=== PATIENT | female | born 1960 | race Caucasian/White ===

== ENCOUNTER → 2018-08-03 11:30 | Outpatient (CLI) | payer OTHER, SELFPAY ==
[2018-08-05 14:43] LABS: HPV Reflexed? NOT INDICATED
--- OUTSIDE RECORDS SUMMARY | 2018-09-26 17:53 | XMS RPT_ITS ---
:1960 Author Organization [facility] Care Team Providers Name Role Phone Manisha Gresham Attending Unavailable PROBLEMS PROBLEMS DATE TYPE CONDITION / CODE ATTENDING STATUS SOURCE 08/05/2018 Unknown Z12.4 - Manisha Gresham Active Daysi Encounter for [facility] screening for Hospital malignant Repository neoplasm of cervix / Z12.4(ICD-10) PROCEDURES PROCEDURES No Procedure Records FoundRESULTS RESULTS PAP I-G W/RFX HRHPV Collected: 2018 Status: F Source: DAYSI 11:00 AM [facility] REPOSITORY Order Comment: CYTOLOGY INFORMATION: - CLINICAL INFORMATION: POSTMENOPAUSAL - DATE LMP/MENOPAUSE: - COLLECTION VIAL: Thin Prep Vial - 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 of containers..01 ThinPrep Vial TYPE CODE TESTS RESULT OUT OF RANGE REFERENCE UNITS LAB L7400.0800 . Normal DIAGN Comment Result Comment: NEGATIVE FOR INTRAEPITHELIAL LESION AND MALIGNANCY. LAB L7400.0900 . Normal ADEQ Comment Result Comment: Satisfactory for evaluation. No endocervical component is identified. LAB L7400.1400 . Normal PERFORM Comment Result Comment: Alka Ross, Wood Box Maker (ASCP) LAB L7400.2575 . Normal TEST METHOD Comment Result Comment: This liquid based ThinPrep(R) pap test was screened with the use of an image guided system. LAB L7400.2600 . Normal . COMM LAB L7400.2700 . Normal PAPSMR Comment Result Comment: The Pap smear is a screening test designed to aid in the detection of premalignant and malignant conditions of the uterine cervix. It is not a diagnostic procedure and should not be used as the sole means of detecting cervical cancer. Both false-positive and false-negative reports do occur. LAB L7400.2800 . Normal HPV RFLX Comment Result Comment: The HPV DNA reflex criteria were not met with this specimen result therefore, no HPV testing was performed. Performed at: - [facility] [id number] [employer] Clerk: Kamilah Chaves MD, Phone: [phone] Performed By: #### L7400.0350 #### [facility] (refer to report for specific site) refer to report for address and phone number ALLERGIES ALLERGIES No Allergies Records FoundENCOUNTERS ENCOUNTERS ADMIT/DISCHARGE ACCOUNT ADMITTING ENCOUNTER LOCATION SOURCE NUMBER CLASS 2018 [id number] Amb[facility] [address] ing:[facility] Repository PAYERS PAYERS ENCOUNTER GUARANTOR PAYER SUBSCRIBER SOURCE 2018 [id number] Insurance:MEDICAL WENGERDDOB[id number] Number: Repository [place] [id number]: [id number] Date:0187-[address]) [address], [place] [address]QA: 2018 Secondary NOT [facility]IV[facility]UNM [facility] Insurance:SELF PAY [facility] ([place], [place]) Number: Effective Repository Date:2018
== END ==
PROVIDERS: Visit Provider Obstetrics & Gynecology
DX: Z12.4 Encounter for screening for malignant neoplasm of cervix (principal)
CPT/HCPCS: 88175; G0145

== ENCOUNTER → 2018-11-05 08:33 | Outpatient (CLI) | payer OTHER, SELFPAY ==
--- NOTE | 2018-11-05 08:38 | BI_ITS ---
MAMMOGRAPHY - BILATERAL SCREENING REASON FOR EXAM: Female, 58 years old. Routine annual screening examination. PERTINENT HISTORY: Aunt with breast cancer. TECHNIQUE: Digital bilateral breast evan (3D mammographic acquisition) in the CC and MLO projections. 2-D mediolateral oblique (MLO) and craniocaudad (CC) views of both breasts were obtained. CAD: Full Field Digital Mammography with Computer Added Detection was performed. COMPARISON: Comparison is made with prior study dated December 26, 2011. FINDINGS: Breast Composition: The breasts are extremely dense, which lowers the sensitivity of mammography. There are no dominant masses or suspicious calcifications. Stable appearance of the small bilateral axillary lymph nodes. No other significant abnormalities are identified. There has been no significant change since the prior study. BI/SCREENING MAMM (CAD), BILAT IMPRESSION: Stable bilateral screening mammogram. Yearly follow-up mammogram recommended. (A) ASSESSMENT CATEGORY: BIRADS Category 1: Negative. A letter regarding these results will be sent to the patient by the facility within 30 days. Approximately 10% of breast cancers are not detected by mammography. A normal mammogram should not delay biopsy of a clinically suspicious abnormality. [id number] Electronically Signed: Avi Crisostomo, at 9:42 EST , Service support ,
== END ==
PROVIDERS: PCP Family Medicine; Referring Provider Obstetrics & Gynecology; Visit Provider Obstetrics & Gynecology
DX: Z12.31 Encounter for screening mammogram for malignant neoplasm of breast (principal)
CPT/HCPCS: 77063; 77067

== ENCOUNTER → 2021-05-03 | Outpatient (CLI) | payer OTHER, SELFPAY | END | disposition home or self-care (01) | LOC: LABSPEC 05-04 07:41 | PROVIDERS: PCP Family Medicine; Referring Provider Physician Assistant; Visit Provider Physician Assistant | DX: R09.81 Nasal congestion (principal) | CPT/HCPCS: 87635; U0005; U0003 ==

== ENCOUNTER 2022-07-22 12:47 | Outpatient (CLI) | payer OTHER, SELFPAY ==
[2022-07-22 15:01] LABS: Absolute Lymphocyte Count 1.65 X10^3/uL (0.83-4.51); Absolute Neutrophil Count 7.4 X10^3/uL (2.0-7.7); Basophil# 0.04 X10^3/uL; Basophil% 0.4 % (0-1); Eosinophil# 0.13 X10^3/uL; Eosinophils% 1.3 % (0-5); Hematocrit 38.5 % (37-47); Hemoglobin 13.1 g/dL (12.0-15.0); Lymphocyte # 1.65 X10^3/ul (0.83-4.51); Lymphocyte % 16.9 % (19-41); Mean Corpuscular Hgb 30.3 pg (27.0-32.0); Mean Corpuscular Volume 88.9 fL (81-99); Mean Platelet Vol. 9.5 fl (6.2-12.0); Monocyte# 0.53 X10^3/uL; Monocyte% 5.4 % (0-10); NRBC Flagged by Analyzer 0 % (0-5); Neutrophil % 75.8 % (47-70); Platelet Count 220 K/mm3 (150-450); RBC Distribution Width CV 13.2 % (11.6-14.6); RBC Distribution Width SD 42.8 fl (35.1-43.9); Red Blood Count 4.33 M/mm3 (4.2-5.4); White Blood Count 9.8 K/mm3 (4.4-11.0)
[2022-07-22 15:36] LABS: ALB/GLOB Ratio 1.1 RATIO (0.9-2.4); AST(SGOT) 17 U/L (15-37); Alanine Aminotransfer ALT/SGPT 40 U/L (13-56); Alkaline Phosphatase 98 U/L (45-117); Anion Gap 6 (5-15); BUN 14 mg/dL (7-18); BUN/Creat Ratio 16.1 RATIO (10-20); Calcium,Total 9.1 mg/dL (8.5-10.1); Chloride 103 mmol/L (98-107); Creatinine, Serum 0.87 mg/dL (0.55-1.02); EST Glomerular Filtration Rate 70 mL/min (>60); Est Glom Filt Rate - Afr Amer 85 mL/min (>60); Globulin 3.8 g/dL (2.2-4.2); Glucose 103 mg/dL (74-106); Potassium 3.8 mmol/L (3.5-5.1); Protein, Total 7.8 g/dL (6.4-8.2); Sodium Level 137 mmol/L (136-145)
== END 2022-07-22 23:59 | disposition home or self-care (01) ==
PROVIDERS: PCP Family Medicine; Referring Provider Family Medicine; Visit Provider Family Medicine
DX: R53.83 Other fatigue (principal)
CPT/HCPCS: 36415; 80053; 84443; 85025

== ENCOUNTER → 2022-08-12 | Outpatient (CLI) | payer OTHER, SELFPAY ==
--- NOTE | 2022-08-12 12:36 | BI_ITS ---
MAMMOGRAPHY - BILATERAL SCREENING REASON FOR EXAM: Female, 62 years old. Routine annual screening examination. PERTINENT HISTORY: Sister with breast cancer. Aunt with breast cancer. TECHNIQUE: Digital bilateral breast gabi (3D mammographic acquisition) in the CC and MLO projections. 2-D mediolateral oblique (MLO) and craniocaudad (CC) views of both breasts were obtained. CAD: Full Field Digital Mammography with Computer Added Detection was performed. COMPARISON: Comparison is made with prior study dated 11/05/2018 and 12/26/2011. FINDINGS: Breast Composition: The breasts are extremely dense, which lowers the sensitivity of mammography. There are no dominant masses or suspicious calcifications. Stable small right axillary lymph nodes. No other significant abnormalities are identified. There has been no significant change since the prior study. BI/SCRN MAMM (CAD)W/GABI BILAT IMPRESSION: Stable bilateral screening mammogram. Yearly follow-up mammogram recommended. (A) ASSESSMENT CATEGORY: BIRADS Category 2: Benign. A letter regarding these results will be sent to the patient by the facility within 30 days. Approximately 10% of breast cancers are not detected by mammography. A normal mammogram should not delay biopsy of a clinically suspicious abnormality. [id number] Electronically Signed: Avi Crisostomo MD at 14:19 EST ,
== END | disposition home or self-care (01) ==
LOC: OPBI 12:35
PROVIDERS: PCP Family Medicine; Visit Provider Family Medicine
DX: Z12.31 Encounter for screening mammogram for malignant neoplasm of breast (principal); Z80.3 Family history of malignant neoplasm of breast
CPT/HCPCS: 77063; 77067

== ENCOUNTER → 2022-09-25 | Outpatient (CLI) | payer OTHER, SELFPAY ==
[2022-09-25 18:32] LABS: T4 Free Direct 0.97 ng/dL (0.76-1.46); Thyroid Stim Hormone (TSH) 1.94 uIU/mL (0.358-3.74)
== END | disposition home or self-care (01) ==
LOC: MTLAB 15:26
PROVIDERS: PCP Family Medicine; Referring Provider Internal Medicine Pulmonary Disease; Visit Provider Internal Medicine Pulmonary Disease
DX: R53.83 Other fatigue (principal)
CPT/HCPCS: 36415; 84439; 84443

== ENCOUNTER → 2022-11-04 | Outpatient (CLI) | payer OTHER, SELFPAY ==
[2022-11-11 22:26] LABS: HPV APTIMA, High Risk Negative (Negative)
== END | disposition home or self-care (01) ==
LOC: LABSPEC 16:47
PROVIDERS: PCP Family Medicine; Visit Provider Registered Nurse
DX: Z01.419 Encounter for gynecological examination (general) (routine) without abnormal findings (principal)
CPT/HCPCS: 87624; 88175; G0145

== ENCOUNTER → 2024-11-15 | Outpatient (CLI) | payer MEDICARE, OTHER, SELFPAY ==
--- NOTE | 2024-11-15 14:45 | BI_ITS ---
EXAM: SCRN MAMM (CAD)W/GABI BILAT DATE: 11/15/2024 CLINICAL HISTORY: F, Age 64 y/o , SCREENING FOR BREAST CANCER. Sister with breast cancer. Aunt with breast cancer. BREAST CANCER RISK ASSESSMENT: Not assessed. TECHNIQUE: Bilateral screening digital breast tomosynthesis with 2D and 3D images. Computer aided detection. COMPARISON: Prior exam(s) dating back to August 12, 2022.. FINDINGS: Bilateral Breast Mammographic Findings: No significant masses, calcifications or other abnormalities are identified. TISSUE DENSITY: The breast tissue is extremely dense which lowers the sensitivity of mammography. No suspicious masses, areas of developing architectural distortion, or suspicious calcifications. BI/SCRN MAMM (CAD)W/GABI BILAT IMPRESSION: Right Breast: BI-RADS category 1, negative findings. Left Breast: BI-RADS category 1, negative findings. Normal interval followup mammograms are recommended in 12 months. A letter with findings and recommendations will be mailed to the patient. ASSESSMENT: BIRADS 1 NEGATIVE RECOMMENDATION: 1: ROUTINE ANNUAL FOLLOW-UP Bilateral in 1 Year Reading Location: [place] [address]
== END | disposition home or self-care (01) ==
PROVIDERS: PCP Family Medicine; Referring Provider Nurse Practitioner Family; Visit Provider Nurse Practitioner Family
DX: Z12.31 Encounter for screening mammogram for malignant neoplasm of breast (principal); Z80.3 Family history of malignant neoplasm of breast
CPT/HCPCS: 77063; 77067

== ENCOUNTER 2024-12-09 11:36 | Outpatient (CLI) | payer MEDICARE, OTHER, SELFPAY ==
[2024-12-09 12:26] LABS: Absolute Lymphocyte Count 1.78 X10^3/uL (0.83-4.51); Absolute Neutrophil Count 4.2 X10^3/uL (2.0-7.7); Basophil# 0.03 X10^3/uL; Basophil% 0.5 % (0-1); Eosinophil# 0.06 X10^3/uL; Eosinophils% 0.9 % (0-5); Hematocrit 37.2 % (37-47); Hemoglobin 12.5 g/dL (12.0-15.0); Lymphocyte # 1.78 X10^3/ul (0.83-4.51); Lymphocyte % 27.3 % (19-41); Mean Corp Hgb Conc 33.6 g/dL (32-36); Mean Corpuscular Hgb 29.2 pg (27.0-32.0); Mean Corpuscular Volume 86.9 fL (81-99); Mean Platelet Vol. 9.4 fl (6.2-12.0); Monocyte# 0.41 X10^3/uL; Monocyte% 6.3 % (0-10); NRBC Flagged by Analyzer 0 % (0-5); Neutrophil # 4.23 X10^3/uL (2.7-7.7); Neutrophil % 64.8 % (47-70); Platelet Count 251 K/mm3 (150-450); RBC Distribution Width CV 13.6 % (11.6-14.6); RBC Distribution Width SD 42.8 fl (35.1-43.9); Red Blood Count 4.28 M/mm3 (4.2-5.4); White Blood Count 6.5 K/mm3 (4.4-11.0)
[2024-12-09 13:16] LABS: ALB/GLOB Ratio 1.4 RATIO (0.9-2.4); AST(SGOT) 24 U/L (<=31); Alanine Aminotransfer ALT/SGPT 36 U/L (<=34); Albumin, Serum 4.6 g/dL (3.4-4.8); Alkaline Phosphatase 108 U/L (35-104); Anion Gap 13 (5-15); BUN 13 mg/dL (4-19); BUN/Creat Ratio 15.2 RATIO (10-20); Calcium,Total 9.6 mg/dL (7.6-11.0); Carbon Dioxide 22.7 mmol/L (21.0-32.0); Chloride 103 mmol/L (98-108); Cholesterol 214 mg/dL (<=200); Creatinine, Serum 0.84 mg/dL (0.70-1.20); EST Glomerular Filtration Rate 77 (>60); Globulin 3.2 g/dL (2.2-4.2); Glucose 132 mg/dL (70-99); High Density Lipoprotein 39 mg/dL; Low Density Lipoprotein Calc. 127 mg/dL; Potassium 4.1 mmol/L (3.3-5.1); Protein, Total 7.8 g/dL (5.9-8.4); Sodium Level 139 mmol/L (133-145); Total Bilirubin 0.59 mg/dL (0.00-1.30); Triglycerides 238 mg/dL; Very Low Density Lipoprotein 48 mg/dL (5-40); cholesterol:hdl ratio screen 5.49
[2024-12-09 13:17] LABS: Vitamin D,25 Hydroxy 40.4 ng/mL (30-100)
[2024-12-13 12:09] LABS: Hemoglobin A1c 6.9 % (<=5.6)
== END 2024-12-09 23:59 | disposition home or self-care (01) ==
PROVIDERS: Nurse Practitioner Family; PCP Family Medicine; Referring Provider Nurse Practitioner Women's Health; Visit Provider Nurse Practitioner Women's Health
DX: Z13.29 Encounter for screening for other suspected endocrine disorder (principal); R53.83 Other fatigue; E66.9 Obesity, unspecified; Z13.220 Encounter for screening for lipoid disorders
CPT/HCPCS: 36415; 80053; 80061; 82306; 83036; 84439; 84443; 85025

== ENCOUNTER → 2024-12-09 | Outpatient (CLI) | payer MEDICARE, OTHER, SELFPAY ==
--- NOTE | 2024-12-09 11:48 | US_ITS ---
PROCEDURE: THYROID 12/09/2024 REASON FOR EXAM: NODULE TECHNIQUE: Thyroid ultrasound COMPARISON: None. FINDINGS: Right thyroid lobe measures 3.6 x 2.0 x 1.6 cm. Left thyroid lobe measures 4.5 x 1.5 x 1.3 cm. Isthmus thickness is0.3 cm. Thyroid Size: Normal Background Echotexture: Homogeneous Thyroid Nodules: No suspicious thyroid nodules. Other: One normal left cervical chain lymph node visualized. US/Thyroid IMPRESSION: Normal thyroid ultrasound. No suspicious thyroid nodules meeting ACR TI-RADS c riteria for follow-up. Reading Location: [id number]
== END | disposition home or self-care (01) ==
LOC: US 11:48
PROVIDERS: PCP Family Medicine; Referring Provider Nurse Practitioner Family; Visit Provider Nurse Practitioner Family
DX: E04.1 Nontoxic single thyroid nodule (principal)
CPT/HCPCS: 76536

== ENCOUNTER → 2025-03-03 | Outpatient (CLI) | payer MEDICARE, OTHER, SELFPAY ==
[2025-03-03 12:51] LABS: Cholesterol 185 mg/dL (<=200); Low Density Lipoprotein Calc. 119 mg/dL; Triglycerides 177 mg/dL; Very Low Density Lipoprotein 35 mg/dL (5-40); cholesterol:hdl ratio screen 6.13
== END | disposition home or self-care (01) ==
LOC: MTLAB 09:43
PROVIDERS: PCP Family Medicine; Referring Provider Family Medicine; Visit Provider Family Medicine
DX: E11.69 Type 2 diabetes mellitus with other specified complication (principal); E78.5 Hyperlipidemia, unspecified
CPT/HCPCS: 36415; 80061; 83036